=== PATIENT | male | born 1980 | race Caucasian/White ===

== ENCOUNTER 2019-03-28 08:32 | Emergency (ER) | payer BC ==
[2019-03-28] MEDS ORDERED: Aspirin 81 MG Tab.Chew PO ONE (08:46)
[2019-03-28] MEDS ORDERED: Sodium Chloride 0.9% 10 ML Syringe FLUSH PRN (08:54)
[2019-03-28] MEDS ORDERED: Sodium Chloride 0.9% 1,000 ML IV SCH (09:00)
--- NOTE | 2019-03-28 09:47 | EDM.PDOC ---
ED HPI GENERAL MEDICAL PROBLEM - General Chief Complaint: Cardiovascular Problem Stated Complaint: CHEST PAIN Time Seen by Provider: 03/28/19 08:35 Source of Information: Reports: Patient History Limitations: Reports: No Limitations - History of Present Illness INITIAL COMMENTS - FREE TEXT/NARRATIVE: States he has been having episodes of sudden onset of palpitiaon s last for 1-2 hrs , with diaphoresis and weakness, would be sitting down then he feels fast heart rate with dizziness, does not relate this with exertion or exercise had energy drink ( powerade) before onset of symptoms of palpitations pt states he drinks alcohol, uses energy drinks and , marijuana daily has family history of CAD: father had 4quadruple bypass at age 50's pt is a heavy smoker has never had lipids checked may have element of anxiety Onset: Sudden Onset Date: 03/24/19 Duration: Day(s): (4 days), Intermittent Location: Reports: Chest - Related Data Allergies Allergy/AdvReac Type Severity Reaction Status Date / Time No Known Allergies Allergy Verified 03/28/19 08:45 Home Meds: Home Meds Famotidine [Pepcid] 20 mg PO DAILY 03/28/19 [History] Social & Family History - Tobacco Use Smoking Status *Q: Current Every Day Smoker Years of Tobacco use: 25 Packs/Tins Daily: 1.5 - Caffeine Use Caffeine Use: Reports: None - Recreational Drug Use Recreational Drug Use: Yes Recreational Drug Type: Reports: Marijuana/Hashish Recreational Drug Use Frequency: Daily ED ROS GENERAL - Review of Systems Review Of Systems: See Below Constitutional: Reports: Weakness, Fatigue HEENT: Reports: No Symptoms Respiratory: Reports: No Symptoms Cardiovascular: Reports: No Symptoms Endocrine: Reports: No Symptoms GI/Abdominal: Reports: No Symptoms Musculoskeletal: Reports: No Symptoms Skin: Reports: No Symptoms Neurological: Reports: No Symptoms Psychiatric: Reports: No Symptoms Hematologic/Lymphatic: Reports: No Symptoms Immunologic: Reports: No Symptoms ED EXAM, GENERAL - Physical Exam Exam: See Below Exam Limited By: No Limitations General Appearance: Alert, WD/WN, No Apparent Distress, Anxious Eye Exam: Bilateral Eye: EOMI Ears: Normal External Exam, Normal TMs Nose: Nasal Deformity Throat/Mouth: Normal Inspection Head: Atraumatic Neck: Supple, Non-Tender, Full Range of Motion Respiratory/Chest: No Respiratory Distress, Lungs Clear, Normal Breath Sounds, Chest Non-Tender Cardiovascular: Normal Peripheral Pulses, Regular Rate, Rhythm, No Edema GI/Abdominal: Soft, Non-Tender Back Exam: Normal Inspection, Full Range of Motion Extremities: Normal Range of Motion Skin Exam: Warm, Intact Course - Vital Signs Last Recorded V/S: Last Vital Signs Temp 36.1 C 03/28/19 08:32 Pulse 82 03/28/19 08:32 Resp 22 H 03/28/19 08:32 BP 133/89 03/28/19 08:32 Pulse Ox 99 03/28/19 08:32 - Orders/Labs/Meds Orders: Active Orders 24 hr Category Date Time Status EKG Documentation Completion [RC] ASDIRECTED Care 03/28/19 08:47 Active Sodium Chloride 0.9% [Normal Saline] 1,000 ml Med 03/28/19 09:00 Active IV ASDIRECTED Sodium Chloride 0.9% [Saline Flush] Med 03/28/19 08:54 Active 10 ml FLUSH ASDIRECTED PRN Saline Lock Insert [OM.PC] Routine Oth 03/28/19 08:54 Ordered EKG 12 Lead [EK] Routine Ther 03/28/19 08:47 Ordered Medication Orders Sodium Chloride (Normal Saline) 1,000 mls @ 999 mls/hr IV ASDIRECTED CACHORRO Last Admin: 03/28/19 09:14 Dose: 999 mls/hr Sodium Chloride (Saline Flush) 10 ml FLUSH ASDIRECTED PRN PRN Reason: Keep Vein Open Last Admin: 03/28/19 08:45 Dose: 10 ml Labs: Laboratory Tests 03/28/19 03/28/19 03/28/19 Range/Units 09:07 09:07 09:07 WBC 10.8 (4.5-12.0) X10-3/uL RBC 5.19 (4.30-5.75) x10(6)uL Hgb 16.7 (13.5-17.8) g/dL Hct 48.4 (30.0-51.3) % MCV 93.1 (80-96) fL MCH 32.1 (27.7-33.6) pg MCHC 34.5 (32.2-35.4) g/dL RDW 12.1 (11.5-15.5) % Plt Count 360 (125-369) X10(3)uL MPV 7.4 (7.4-10.4) fL Neut % (Auto) 77.7 (46-82) % Lymph % (Auto) 14.7 (13-37) % Bond % (Auto) 5.0 (4-12) % Eos % (Auto) 1 (1.0-5.0) % Baso % (Auto) 1 (0-2) % Neut # (Auto) 8.4 H (1.6-8.3) # Lymph # (Auto) 1.6 (0.6-5.0) # Bond # (Auto) 0.5 (0.0-1.3) # Eos # (Auto) 0.2 (0.0-0.8) # Baso # (Auto) 0.1 (0.0-0.2) # Sodium 142 (135-145) mmol/L Potassium 4.1 (3.5-5.3) mmol/L Chloride 105 (100-110) mmol/L Carbon Dioxide 26 (21-32) mmol/L BUN 16 (7-18) mg/dL Creatinine 1.1 (0.70-1.30) mg/dL Est Cr Clr Drug Dosing 97.98 mL/min Estimated GFR (MDRD) > 60 (>60) BUN/Creatinine Ratio 14.5 (9-20) Glucose 122 H (80-116) mg/dL Calcium 8.7 (8.6-10.2) mg/dL Troponin I 4.1 (4.0-60.3) pg/mL Triglycerides 159 H (15-150) mg/dL Cholesterol 178 (50-200) mg/dL LDL Cholesterol Direct 106 (60-130) mg/dL HDL Cholesterol 38 L (40-75) mg/dL Cholesterol/HDL Ratio 4.7 (0-5) TSH, Ultra Sensitive 3.32 (0.36-3.74) IU/mL Meds: Medications Generic Name Dose Route Start Last Admin Trade Name Freq PRN Reason Stop Dose Admin Sodium Chloride 1,000 mls @ 999 mls/hr 03/28/19 09:00 03/28/19 09:14 Normal Saline IV 999 mls/hr ASDIRECTED CACHORRO Administration Sodium Chloride 10 ml 03/28/19 08:54 03/28/19 08:45 Saline Flush FLUSH 10 ml ASDIRECTED PRN Administration Keep Vein Open Discontinued Medications Generic Name Dose Route Start Last Admin Trade Name Nicholas PRN Reason Stop Dose Admin Aspirin 324 mg 03/28/19 08:46 03/28/19 08:45 Aspirin PO 03/28/19 08:47 324 mg ONETIME ONE Administration - Re-Assessments/Exams Free Text/Narrative Re-Assessment/Exam: 03/28/19 09:50 pt has had no repeat episode of chest pain or palpitations or fast heart rate since being in the ER , not diaphoretic EKG was normal , Labs reviewed , negative troponin, thyrorid function test discussed with pt need to have Holter monitor done ( cardiac monitoring as an outpatient ). may need to have stress test done Does not have PCP : will get set up for appointment Departure - Departure Time of Disposition: 10:00 Disposition: Home, Self-Care 01 Clinical Impression: Palpitations, Gastroesophageal reflux disease, Fam hx-ischem heart disease, Smoker Instructions: Coping with Quitting Smoking, Palpitations, [id number], Ambulatory Cardiac Monitoring Referrals: PCP,None [Primary Care Provider] - Forms: ED Department Discharge Additional Instructions: IF pain re-occurs return to ER while you are still having pain Ok to take Aspirin at the time Make appt to see a PCP ; you will need to get holter monitor done and stress test You will need to get EGD done to assess reflux Sepsis Event Note - Evaluation Sepsis Screening Result: No Definite Risk - Focused Exam Vital Signs: Vital Signs Temp Pulse Resp BP Pulse Ox 03/28/19 08:32 36.1 C 82 22 H 133/89 99 Date Exam was Performed: 03/28/19 Time Exam was Performed: 10:17 - My Orders Last 24 Hours: My Active Orders 03/28/19 08:47 EKG Documentation Completion [RC] ASDIRECTED EKG 12 Lead [EK] Routine 03/28/19 08:54 Sodium Chloride 0.9% [Saline Flush] 10 ml FLUSH ASDIRECTED PRN Saline Lock Insert [OM.PC] Routine 03/28/19 09:00 Sodium Chloride 0.9% [Normal Saline] 1,000 ml IV ASDIRECTED - Assessment/Plan Last 24 Hours: My Active Orders 03/28/19 08:47 EKG Documentation Completion [RC] ASDIRECTED EKG 12 Lead [EK] Routine 03/28/19 08:54 Sodium Chloride 0.9% [Saline Flush] 10 ml FLUSH ASDIRECTED PRN Saline Lock Insert [OM.PC] Routine 03/28/19 09:00 Sodium Chloride 0.9% [Normal Saline] 1,000 ml IV ASDIRECTED
[2019-03-28] MEDS ORDERED: LORazepam 0.5 MG Tab PO ONE (10:32)
[2019-03-28] MEDS ORDERED: Meclizine 25 MG Tab PO ONE (11:08)
== END 2019-03-28 11:30 | disposition home or self-care (01) ==
LOC: FB.ED 08:32
DX: R00.2 Palpitations (principal); K21.9 Gastro-esophageal reflux disease without esophagitis; F17.210 Nicotine dependence, cigarettes, uncomplicated; Z82.49 Family history of ischemic heart disease and other diseases of the circulatory system; Z79.899 Other long term (current) drug therapy
CPT/HCPCS: 36415; 80048; 80061; 84443; 84484; 85025; 93005; 96360; 99285-25; A9270-GY; J7030

== ENCOUNTER 2019-03-28 19:31 | Emergency (ER) | payer BC ==
[2019-03-28] MEDS ORDERED: ALPRAZolam 0.5 MG Tab PO ONE (19:47)
--- NOTE | 2019-03-28 20:48 | EDM.PDOC ---
ED HPI GENERAL MEDICAL PROBLEM - General Chief Complaint: General Stated Complaint: FEELS LIKE PASSING OUT Time Seen by Provider: 03/28/19 19:45 Source of Information: Reports: Patient, Family History Limitations: Reports: No Limitations - History of Present Illness INITIAL COMMENTS - FREE TEXT/NARRATIVE: was seen this am for episodes of palpitations that started on monday Was given ativan and meclizine , did feel better ans slept this pm developed same symptoms agian of difficulty breathing , shaking hands, numbness and tingling in the fingers Feeling like he was going to pass ot Did take meclizine but symptoms were no relieved Onset: Today Onset Date: 03/28/19 Onset Time: 18:00 Duration: Getting Worse Location: Reports: Chest, Generalized Quality: Reports: Same as Previous Episode Severity: Moderate Improves with: Reports: Rest Worsens with: Reports: Movement Associated Symptoms: Reports: Weakness - Related Data Allergies Allergy/AdvReac Type Severity Reaction Status Date / Time No Known Allergies Allergy Verified 03/28/19 19:46 Home Meds: Home Meds ALPRAZolam [Xanax] 0.25 mg PO DAILY PRN #5 tablet 03/28/19 [Rx] Famotidine [Pepcid] 20 mg PO DAILY 03/28/19 [History] Meclizine [Antivert] 25 mg PO Q6H PRN #30 tab 03/28/19 [Rx] Past Medical History Respiratory History: Reports: Other (See Below) Other Respiratory History: smoker of 1.5 pack/day. Psychiatric History: Reports: Other (See Below) Other Psychiatric History: marijuana user as per patient and also smoker of 1.5 cig /day. Social & Family History - Family History Family Medical History: Noncontributory - Tobacco Use Smoking Status *Q: Current Every Day Smoker Years of Tobacco use: 25 Packs/Tins Daily: 1.5 - Caffeine Use Caffeine Use: Reports: None - Recreational Drug Use Recreational Drug Use: Yes Recreational Drug Type: Reports: Marijuana/Hashish ED ROS GENERAL - Review of Systems Review Of Systems: See Below Constitutional: Reports: ROS unobtainable HEENT: Reports: No Symptoms Respiratory: Reports: No Symptoms Cardiovascular: Reports: Palpitations Endocrine: Reports: No Symptoms GI/Abdominal: Reports: Decreased Appetite : Reports: No Symptoms Musculoskeletal: Reports: No Symptoms Skin: Reports: No Symptoms Neurological: Reports: Dizziness, Numbness, Paresthesia, Weakness Psychiatric: Reports: Anxiety. Denies: Depression Hematologic/Lymphatic: Reports: No Symptoms Immunologic: Reports: No Symptoms ED EXAM, GENERAL - Physical Exam Exam: See Below Exam Limited By: No Limitations General Appearance: Alert, WD/WN, No Apparent Distress Eye Exam: Bilateral Eye: EOMI Ear Exam: Bilateral Ear: Tenderness Nose: Normal Inspection Throat/Mouth: Normal Oropharynx Head: Normocephalic Neck: Supple, Non-Tender Respiratory/Chest: Lungs Clear, Normal Breath Sounds Cardiovascular: Regular Rate, Rhythm, No Edema GI/Abdominal: Soft, Non-Tender Back Exam: Normal Inspection Neurological: Alert, Oriented, Normal Reflexes Course - Vital Signs Last Recorded V/S: Last Vital Signs Temp 36.5 C 03/28/19 19:40 Pulse 83 03/28/19 19:40 Resp 17 03/28/19 19:40 BP 145/73 H 03/28/19 19:40 Pulse Ox 95 03/28/19 19:40 - Orders/Labs/Meds Orders: Active Orders 24 hr Category Date Time Status EKG Documentation Completion [RC] ASDIRECTED Care 03/28/19 20:17 Active DRUG SCREEN, URINE ALERE [URCHEM] Stat Lab 03/28/19 19:47 Ordered EKG 12 Lead [EK] Routine Ther 03/28/19 19:40 Ordered Meds: Medications Discontinued Medications Generic Name Dose Route Start Last Admin Trade Name Ramboq PRN Reason Stop Dose Admin Alprazolam 0.5 mg 03/28/19 19:47 03/28/19 20:00 Xanax PO 03/28/19 19:48 0.5 mg NOW ONE Administration Departure - Departure Time of Disposition: 20:50 Disposition: Home, Self-Care 01 Condition: Fair Clinical Impression: Panic disorder, Anxiety disorder, Palpitations, Gastroesophageal reflux disease , Smoker - Discharge Information *PRESCRIPTION DRUG MONITORING PROGRAM REVIEWED*: Not Applicable *COPY OF PRESCRIPTION DRUG MONITORING REPORT IN PATIENT HEIKE: Not Applicable Instructions: Panic Attack, [id number], Palpitations, [id number], Social Anxiety Disorder, Adult, Living With Anxiety Referrals: PCP,None [Primary Care Provider] - Additional Instructions: Keep appointment to see your PCP You will need psychotherapy of medication to further manage this condition Sepsis Event Note - Evaluation Sepsis Screening Result: No Definite Risk - Focused Exam Vital Signs: Vital Signs Temp Pulse Resp BP Pulse Ox 03/28/19 19:40 36.5 C 83 17 145/73 H 95 Date Exam was Performed: 03/28/19 Time Exam was Performed: 20:20 - My Orders Last 24 Hours: My Active Orders 03/28/19 19:40 EKG 12 Lead [EK] Routine 03/28/19 19:47 DRUG SCREEN, URINE ALERE [URCHEM] Stat 03/28/19 20:17 EKG Documentation Completion [RC] ASDIRECTED - Assessment/Plan Last 24 Hours: My Active Orders 03/28/19 19:40 EKG 12 Lead [EK] Routine 03/28/19 19:47 DRUG SCREEN, URINE ALERE [URCHEM] Stat 03/28/19 20:17 EKG Documentation Completion [RC] ASDIRECTED
== END 2019-03-28 20:57 | disposition home or self-care (01) ==
LOC: FB.ED 19:31
DX: F41.0 Panic disorder [episodic paroxysmal anxiety] (principal); K21.9 Gastro-esophageal reflux disease without esophagitis; F17.210 Nicotine dependence, cigarettes, uncomplicated
CPT/HCPCS: 80305-QW; 93005; 99285-25; A9270-GY